=== PATIENT | male | born 1950 | race Caucasian/White ===

== ENCOUNTER 2018-09-08 12:42 | Emergency (ER) | payer OTHER ==
[~2018-09-08] VITALS: Ht 180.3 cm; Wt 103.0 kg
[~2018-09-08 12:42] MED LIST: ASPIR 8181 MG; ATORVASTATIN CA40 MG; BACTRIM DS TAB1 EACH PO; CILOSTAZOL 100100 M1; COREG6.25 MG; PLAVIX 75 MG TA75 M1
[2018-09-08] MEDS ORDERED: OMEGA-31000 M1 PO (12:51)
[2018-09-08] MEDS ORDERED: UNICOMPLEX M TA1 TA1 PO (12:52)
[2018-09-08] MEDS ORDERED: VITAMIN D2000 UNIT PO (12:52)
[2018-09-08 14:23] LABS: ABSOLUTE EOSINOPHILS 0.2 thou/uL (0.0-0.7); ABSOLUTE LYMPHOCYTES 1.2 thou/uL (0.8-5.3); ABSOLUTE NEUTROPHILS 7.2 thou/uL (1.6-8.1); BASOPHILS 0.5 %; EOSINOPHILS 2.3 %; HEMATOCRIT 41.8 % (42.0-52.0); HEMOGLOBIN 14.3 gm/dL (14.0-18.0); LYMPHOCYTES 12.9 %; MCH 29.7 pg (26.0-34.0); MCHC 34.3 g/dL (28.0-37.0); MCV 86.5 fL (80.0-100.0); MONOCYTES 10.3 %; MPV 6.8 fl. (7.2-11.1); NUCLEATED RBCS 0 /100WBC; PLATELET COUNT* 398 thou/uL (150-400); RBC 4.83 mil/uL (4.50-6.00); WBC 9.7 thou/uL (4.0-11.0)
[2018-09-08 14:33] LABS: CALCIUM 9.3 mg/dL (8.5-10.1); POTASSIUM 3.7 mmol/L (3.5-5.1)
[2018-09-08 14:43] LABS: ALBUMIN 3.4 g/dL (3.4-5.0); TOTAL BILIRUBIN 0.8 mg/dL (<0.1-1.0)
[2018-09-08] MEDS ORDERED: CLEOCIN HCL150 MG PO (17:16)
[2018-09-08] MEDS ORDERED: NORCO 5-325 TA1 EACH PO (17:19)
[2018-09-08 18:24] VITALS: BP 144/65
== END 2018-09-08 18:24 | disposition home or self-care (01) ==
LOC: M.ERS 12:42
PROVIDERS: Nurse Practitioner Family
DX: K61.0 Anal abscess (principal); E78.00 Pure hypercholesterolemia, unspecified

== ENCOUNTER 2018-09-23 04:50 | Emergency (ER) | payer OTHER ==
[~2018-09-23] VITALS: Ht 180.3 cm; Wt 103.0 kg
[~2018-09-23 04:50] MED LIST changes: +CLEOCIN HCL150 MG PO; +NORCO 5-325 TA1 EACH PO; +OMEGA-31000 M1 PO; +UNICOMPLEX M TA1 TA1 PO; +VITAMIN D2000 UNIT PO
[2018-09-23] MEDS ORDERED: NORCO 5-325 TA1 EACH PO (05:37)
[2018-09-23 05:52] VITALS: BP 130/77
== END 2018-09-23 05:49 | disposition home or self-care (01) ==
LOC: M.ERS 04:50
DX: K61.0 Anal abscess (principal); E78.00 Pure hypercholesterolemia, unspecified; Z86.73 Personal history of transient ischemic attack (TIA), and cerebral infarction without residual deficits

== ENCOUNTER 2021-04-10 21:10 | Emergency (ER) | payer OTHER ==
[~2021-04-10] VITALS: Ht 180.3 cm; Wt 104.3 kg
[2021-04-10] MEDS ORDERED: CEPHALEXIN500 MG PO (21:57)
[2021-04-10] MEDS ORDERED: MUPIROCIN15 GM TOP (21:57)
[2021-04-10 22:05] VITALS: BP 124/78
== END 2021-04-10 22:05 | disposition home or self-care (01) ==
LOC: M.ERS 21:10
DX: T63.391A Toxic effect of venom of other spider, accidental (unintentional), initial encounter (principal); E78.00 Pure hypercholesterolemia, unspecified; Z86.73 Personal history of transient ischemic attack (TIA), and cerebral infarction without residual deficits; Y92.89 Other specified places as the place of occurrence of the external cause

== ENCOUNTER 2021-04-14 13:44 | Inpatient (IN) | payer OTHER ==
[~2021-04-14] VITALS: Ht 182.9 cm; Wt 82.6 kg
[~2021-04-14 13:44] MED LIST changes: +CEPHALEXIN500 MG PO; +MUPIROCIN15 GM TOP
[2021-04-14 13:49] VITALS: BP 170/61
[2021-04-14 14:23] LABS: ABSOLUTE BASOPHILS 0.1 thou/uL (0.0-0.2); ABSOLUTE EOSINOPHILS 0.3 thou/uL (0.0-0.7); ABSOLUTE MONOCYTES 0.6 thou/uL (0.0-1.2); BASOPHILS 0.9 %; EOSINOPHILS 5.7 %; HEMATOCRIT 41.1 % (42.0-52.0); HEMOGLOBIN 14.2 gm/dL (14.0-18.0); LYMPHOCYTES 33.7 %; MCH 29.6 pg (26.0-34.0); MCHC 34.5 g/dL (28.0-37.0); MCV 85.8 fL (80.0-100.0); MONOCYTES 9.7 %; MPV 7.7 fl. (7.2-11.1); NUCLEATED RBCS 0 /100WBC; PLATELET COUNT* 299 thou/uL (150-400); RBC 4.78 mil/uL (4.50-6.00); RDW-CV 14.2 % (10.5-14.5)
[2021-04-14 14:32] LABS: CALCIUM 9.4 mg/dL (8.5-10.1); POTASSIUM 3.9 mmol/L (3.5-5.1)
[2021-04-14 14:36] LABS: ALBUMIN 3.2 g/dL (3.4-5.0); TOTAL BILIRUBIN 0.7 mg/dL (<0.1-1.0)
[2021-04-14 17:10] VITALS: BP 116/50
[2021-04-14 18:00] VITALS: BP 135/53
[2021-04-14 20:30] VITALS: BP 118/49
[2021-04-15 04:16] LABS: ABSOLUTE EOSINOPHILS 0.3 thou/uL (0.0-0.7); ABSOLUTE LYMPHOCYTES 1.8 thou/uL (0.8-5.3); ABSOLUTE MONOCYTES 0.5 thou/uL (0.0-1.2); ABSOLUTE NEUTROPHILS 2.5 thou/uL (1.6-8.1); BASOPHILS 0.9 %; EOSINOPHILS 5.5 %; HEMATOCRIT 37.7 % (42.0-52.0); MCH 29.6 pg (26.0-34.0); MCHC 34.6 g/dL (28.0-37.0); MCV 85.8 fL (80.0-100.0); MONOCYTES 10.2 %; MPV 7.9 fl. (7.2-11.1); NUCLEATED RBCS 0 /100WBC; PLATELET COUNT* 263 thou/uL (150-400); POLYS 48.4 %; RBC 4.39 mil/uL (4.50-6.00); RDW-CV 13.7 % (10.5-14.5); WBC 5.1 thou/uL (4.0-11.0)
[2021-04-15 04:30] LABS: CALCIUM 8.6 mg/dL (8.5-10.1); CREATININE 0.9 mg/dL (0.6-1.3); POTASSIUM 4.2 mmol/L (3.5-5.1)
[2021-04-15 04:34] LABS: ALBUMIN 2.8 g/dL (3.4-5.0); TOTAL BILIRUBIN 0.6 mg/dL (<0.1-1.0); TOTAL PROTEIN 6.9 g/dL (6.4-8.2)
[2021-04-15 10:26] VITALS: BP 154/67
[2021-04-15 15:52] VITALS: BP 144/61
[2021-04-15 19:55] VITALS: BP 144/60
[2021-04-16 02:07] LABS: GLYCOHEMOGLOBIN (HGB A1C) 13.4 % (4.8-5.6)
[2021-04-16 04:13] LABS: CALCIUM 8.8 mg/dL (8.5-10.1); POTASSIUM 4.1 mmol/L (3.5-5.1)
[2021-04-16 04:20] LABS: ABSOLUTE BASOPHILS 0.1 thou/uL (0.0-0.2); ABSOLUTE EOSINOPHILS 0.3 thou/uL (0.0-0.7); ABSOLUTE LYMPHOCYTES 1.8 thou/uL (0.8-5.3); ABSOLUTE MONOCYTES 0.5 thou/uL (0.0-1.2); ABSOLUTE NEUTROPHILS 3.1 thou/uL (1.6-8.1); HEMATOCRIT 37.3 % (42.0-52.0); LYMPHOCYTES 31.1 %; MCH 29.3 pg (26.0-34.0); MCHC 34.7 g/dL (28.0-37.0); MCV 84.6 fL (80.0-100.0); MONOCYTES 8.8 %; MPV 7.6 fl. (7.2-11.1); NUCLEATED RBCS 0 /100WBC; PLATELET COUNT* 290 thou/uL (150-400); POLYS 53.1 %; RBC 4.41 mil/uL (4.50-6.00); RDW-CV 14.1 % (10.5-14.5); WBC 5.7 thou/uL (4.0-11.0)
[2021-04-16 07:15] VITALS: BP 142/71
[2021-04-16 16:00] VITALS: BP 141/56
[2021-04-16 20:57] VITALS: BP 131/56
[2021-04-17 05:20] LABS: ABSOLUTE BASOPHILS 0.1 thou/uL (0.0-0.2); ABSOLUTE EOSINOPHILS 0.3 thou/uL (0.0-0.7); ABSOLUTE LYMPHOCYTES 1.9 thou/uL (0.8-5.3); ABSOLUTE MONOCYTES 0.5 thou/uL (0.0-1.2); ABSOLUTE NEUTROPHILS 3.3 thou/uL (1.6-8.1); BASOPHILS 0.9 %; EOSINOPHILS 5.6 %; HEMATOCRIT 37.9 % (42.0-52.0); LYMPHOCYTES 30.8 %; MCH 29.3 pg (26.0-34.0); MCHC 34.3 g/dL (28.0-37.0); MCV 85.5 fL (80.0-100.0); MONOCYTES 8.1 %; MPV 7.2 fl. (7.2-11.1); NUCLEATED RBCS 0 /100WBC; PLATELET COUNT* 297 thou/uL (150-400); POLYS 54.6 %; RBC 4.43 mil/uL (4.50-6.00); WBC 6.1 thou/uL (4.0-11.0)
[2021-04-17 05:22] LABS: CALCIUM 8.5 mg/dL (8.5-10.1); CREATININE 0.9 mg/dL (0.6-1.3); POTASSIUM 3.8 mmol/L (3.5-5.1)
[2021-04-17 07:10] VITALS: BP 151/64
[2021-04-17 08:13] VITALS: BP 151/64
[2021-04-17] MEDS ORDERED: BACTRIM DS TAB1 EAC1 PO (16:39)
[2021-04-17] MEDS ORDERED: METFORMIN HCL500 M1 PO (16:44)
[2021-04-17 17:21] VITALS: BP 135/56
[2021-04-17 21:15] VITALS: BP 147/63
[2021-04-18 04:58] LABS: HEMATOCRIT 36.5 % (42.0-52.0); HEMOGLOBIN 12.6 gm/dL (14.0-18.0); MCH 29.4 pg (26.0-34.0); MCHC 34.5 g/dL (28.0-37.0); MCV 85.2 fL (80.0-100.0); MPV 7.2 fl. (7.2-11.1); RBC 4.29 mil/uL (4.50-6.00); WBC 7.1 thou/uL (4.0-11.0)
[2021-04-18 05:06] LABS: CALCIUM 8.8 mg/dL (8.5-10.1); POTASSIUM 4.5 mmol/L (3.5-5.1)
[2021-04-18 08:20] VITALS: BP 143/62
[2021-04-18 10:54] VITALS: BP 151/64
[2021-04-18 12:36] VITALS: BP 151/64
== END 2021-04-18 12:37 | disposition home or self-care (01) | DRG 872 ==
LOC: M.ERS 13:44 → M.ORTHSURG 14:36 → M.TBA-ER 14:36 → M.ORTHSURG 17:07
PROVIDERS: Family Medicine; Physician Assistant; ADMIT Internal Medicine; ATTEND Internal Medicine
DX: A41.9 Sepsis, unspecified organism (principal); L03.115 Cellulitis of right lower limb; E44.0 Moderate protein-calorie malnutrition; E87.1 Hypo-osmolality and hyponatremia; Z20.822 Contact with and (suspected) exposure to COVID-19; E78.5 Hyperlipidemia, unspecified; E11.51 Type 2 diabetes mellitus with diabetic peripheral angiopathy without gangrene; E11.65 Type 2 diabetes mellitus with hyperglycemia; E78.00 Pure hypercholesterolemia, unspecified; Z86.73 Personal history of transient ischemic attack (TIA), and cerebral infarction without residual deficits; Z95.820 Peripheral vascular angioplasty status with implants and grafts; Z87.891 Personal history of nicotine dependence; Z68.24 Body mass index [BMI] 24.0-24.9, adult; Z79.82 Long term (current) use of aspirin; Z79.899 Other long term (current) drug therapy